=== PATIENT | female | born 1960 | race African-American/Black ===

== ENCOUNTER 2024-05-17 21:18 | Inpatient (IN) | payer MEDICAID ==
[~2024-05-17] VITALS: Ht 154.9 cm; Wt 78.5 kg
[2024-05-17 22:19] LABS: BASOPHILS % 0.1 % (0.0-2.0); EOSINOPHILS % 1.2 % (0.0-5.0); HEMATOCRIT. 43.5 % (36.0-48.0); HEMOGLOBIN. 14.5 g/dL (12.0-16.0); LYMPHOCYTES % 36.8 % (20.0-50.0); MEAN CORPUSCULAR HGB CONC 33.4 g/dL (31.0-37.0); MEAN CORPUSCULAR VOLUME 83.8 fL (81.0-99.0); MEAN PLATELET VOLUME 8.1 fl (7.4-10.4); MONOCYTES % 7.7 % (2.0-8.0); NEUTROPHILS % 54.2 % (40.0-76.0); PLATELET 227 x1000/uL (130-400); RED BLOOD CELL COUNT 5.19 mill/uL (4.2-5.4); RED CELL DISTRIBUTION WIDTH 14.5 % (11.6-14.6); WHITE BLOOD COUNT 7.5 x1000/uL (4.5-11.0)
[2024-05-17 22:21] LABS: CHLORIDE 103 mEq/L (98-107); SODIUM 138 mEq/L (136-145)
[2024-05-17 22:22] LABS: CALCIUM 9.7 mg/dL (8.7-10.4); CARBON DIOXIDE 27 mEq/L (21-32)
[2024-05-17 22:27] LABS: GLUCOSE 107 mg/dL (70-105); UREA NITROGEN BLOOD 12 mg/dL (9-23)
[2024-05-17 22:28] LABS: TROPONIN I HIGH SENSITIVITY 18 ng/L (3.0-34)
[2024-05-18] VITALS (7 sets, daily range): BP systolic 123–159; BP diastolic 60–101; PULSE 75–95; RESP 16–18; TEMP 36.16956–36.61404; O2SAT 98–99
[2024-05-18] MEDS: HYDRALAZINE 20MG/ML VIAL IV ONE (00:03)
[2024-05-18] MEDS ORDERED: HYDR12.54 MT (04:08)
[2024-05-18] MEDS ORDERED: AMLO5TAB88 MT (04:08)
[2024-05-18] MEDS ORDERED: LISI40TA13 MT (04:08)
[2024-05-18] MEDS ORDERED: NALOXONE HCL 0.4MG/ML VIAL IV PRN (04:30)
[2024-05-18] MEDS: HYDROCODONE/ACETAMINOPHEN 5/325MG TABLET PO PRN (04:36)
[2024-05-18] MEDS: HYDRALAZINE HCL 10MG TABLET PO SCH (06:23)
[2024-05-18] MEDS: AMLODIPINE 10MG TABLET PO SCH (10:04)
[2024-05-18] MEDS: LISINOPRIL 40MG TABLET PO SCH (10:04)
[2024-05-18] MEDS: HYDROCHLOROTHIAZIDE 12.5MG CAPSULE PO SCH (10:04)
[2024-05-18] MEDS: ACETAMINOPHEN 650MG/20.3ML UDC PO PRN (10:31)
[2024-05-18] MEDS ORDERED: CLONIDINE 0.1MG TABLET PO PRN (11:45)
[2024-05-18] MEDS ORDERED: DOCUSATE SODIUM 100MG CAPSULE PO PRN (11:45)
[2024-05-18] MEDS ORDERED: IPRATROPIUM/ALBUTEROL 0.5-3(2.5)MG/3ML NEB HHN PRN (11:45)
[2024-05-18 13:48] LABS: CREATINE KINASE MB FRACTION 1.2 ng/mL (0.5-3.6)
[2024-05-18 13:52] LABS: T4 FREE 1.56 ng/dL (0.89-1.76)
[2024-05-18 13:53] LABS: THYROID STIMULATING HORMONE 0.43 uIU/mL (0.55-4.78)
[2024-05-18 14:25] LABS: CLARITY URINE CLEAR (CLEAR); COLOR URINE YELLOW (YELLOW); GLUCOSE URINE NEGATIVE (NEGATIVE); KETONES URINE NEGATIVE (NEGATIVE); LEUKOCYTE ESTERASE URINE 1+ (NEGATIVE); NITRITE URINE NEGATIVE (NEGATIVE); OCCULT BLOOD URINE NEGATIVE (NEGATIVE); PROTEIN URINE NEGATIVE (NEGATIVE); SPECIFIC GRAVITY URINE 1.016 (1.005-1.030); UROBILINOGEN URINE 0.2 E.U./dL (0.2-1.0)
[2024-05-18 14:39] LABS: BACTERIA URINE 1+; RBC URINE 0-2 /hpf (0-2); SQUAMOUS EPITHELIAL CELL URINE 2+ /lpf (RARE/1+); YEAST URINE NONE SEEN
[2024-05-18 14:56] LABS: *AMPHETAMINES SCREEN URINE NEGATIVE (NEGATIVE); *BARBITURATES SCREEN URINE NEGATIVE (NEGATIVE); *BENZODIAZEPINES SCREEN URINE NEGATIVE (NEGATIVE)
[2024-05-18 14:57] LABS: *COCAINE SCREEN URINE NEGATIVE (NEGATIVE); CANNABINOID URINE SCREEN NEGATIVE (NEGATIVE); ECSTASY MDMA SCREEN URINE NEGATIVE (NEGATIVE); METHADONE URINE SCREEN NEGATIVE (NEGATIVE); OPIATES URINE SCREEN NEGATIVE (NEGATIVE); PHENCYCLIDINE URINE SCREEN NEGATIVE (NEGATIVE)
[2024-05-18] MEDS: KETOROLAC 30MG/ML VIAL IV PRN (20:24)
[2024-05-18] MEDS: ONDANSETRON HCL 4MG/2ML INJ IV PRN (20:24)
[2024-05-19] VITALS: BP 136/73; PULSE 100; RESP 17; TEMP 36.114; O2SAT 100
[2024-05-19 04:00] VITALS: BP 96/56; PULSE 99; RESP 17; TEMP 36.16956; O2SAT 99
[2024-05-19 08:00] VITALS: BP 138/87; PULSE 77; RESP 18; TEMP 36.00288; O2SAT 96
[2024-05-19 11:47] VITALS: BP 129/73; PULSE 99; RESP 18; TEMP 36.00288; O2SAT 97
[2024-05-19] MEDS ORDERED: AMLO10TA80 MT (12:00)
[2024-05-19] MEDS ORDERED: CIPR-263 MT (12:00)
[2024-05-19 14:47] VITALS: BP 129/73; PULSE 99; TEMP 96.8; O2SAT 97
== END 2024-05-19 16:59 | disposition home or self-care (01) | DRG 199 ==
LOC: ER 21:18 → 5WST 05-18 02:34 → EDBEDREQTM 05-18 02:38 → EDBEDREQ 05-18 02:38 → 7WST 05-18 08:56
PROVIDERS: ADMIT Internal Medicine; ATTEND Internal Medicine
DX: I16.0 Hypertensive urgency (principal); J45.909 Unspecified asthma, uncomplicated; I10 Essential (primary) hypertension; N39.0 Urinary tract infection, site not specified; Z90.49 Acquired absence of other specified parts of digestive tract; Z88.0 Allergy status to penicillin; Z79.899 Other long term (current) drug therapy
CPT/HCPCS: 36415; 71045; 80048; 80305; 81003; 82550; 82553; 83880; 84439; 84443; 84480; 84484; 85025; 93005; 93306; 97162; 99285; J0360; J1885; J2405